=== PATIENT | female | born 1965 | race Caucasian/White ===

== ENCOUNTER 2019-02-21 08:51 | Day surgery (SDC) | payer BC, MEDICAID ==
[~2019-02-21 08:51] MED LIST: SEVOFLURANE 15 MIN
[2019-02-21] MEDS ORDERED: METOCLOPRAMIDE 10 MG INJ (11:15)
[2019-02-21] MEDS ORDERED: CEFAZOLIN 1 GM INJ (11:15)
[2019-02-21] MEDS ORDERED: ONDANSETRON 4 MG INJ (11:15)
[2019-02-21] MEDS ORDERED: LIDOCAINE 2% (SDV) 5 ML INJ (11:15)
[2019-02-21] MEDS ORDERED: PROPOFOL 20 ML (11:15)
[2019-02-21] MEDS ORDERED: MIDAZOLAM 1 MG/ML 2 ML INJ IV (12:00)
[2019-02-21] MEDS ORDERED: METOCLOPRAMIDE 10 MG INJ IV (12:00)
[2019-02-21] MEDS ORDERED: DIPHENHYDRAMINE 50 MG INJ IV (12:00)
[2019-02-21] MEDS ORDERED: hydrALAzine 20 MG INJ IV (12:00)
[2019-02-21] MEDS ORDERED: ONDANSETRON 4 MG INJ IV (12:00)
[2019-02-21] MEDS ORDERED: LABETALOL HCL 20MG INJ IV (12:00)
[2019-02-21] MEDS ORDERED: OXYCODONE/ACETAMINOPHEN (5/325) TAB PO ×2 (12:00)
[2019-02-21] MEDS ORDERED: EPHEDrine SULFATE 50 MG/5 ML SYG IV (12:00)
[2019-02-21] MEDS ORDERED: MEPERIDINE 25 MG INJ IV (12:00)
[2019-02-21] MEDS ORDERED: FENTAnyl 50 MCG/ML VIAL IV ×3 (12:00)
== END 2019-02-21 14:10 | disposition home or self-care (01) ==
LOC: SDS 08:51
DX: N93.9 Abnormal uterine and vaginal bleeding, unspecified (principal)
CPT/HCPCS: 58120; 84703; 86850; 86900; 86901; 88305